=== PATIENT | female | born 1965 | race Caucasian/White ===

== ENCOUNTER 2016-09-15 10:18 | Emergency (ER) | payer OTHER ==
--- NOTE | 2016-09-15 10:31 | CPEKG ---
Heart Rate: 84 RR Interval: 714 P-R Interval: 164 QRSD Interval: 84 QT Interval: 352 QTC Interval: 417 P [place]: 68 QRS [place]: 64 T Wave [place]: -55 EKG Severity - BORDERLINE ECG - EKG Impression: SINUS RHYTHM EKG Impression: BORDERLINE T ABNORMALITIES, DIFFUSE LEADS Electronically Signed By: Kirstin Bae 15-Sep-2016 15:18:44
--- NOTE | 2016-09-15 10:54 | EDPHY ---
H & P Time Seen by Provider: 09/15/16 10:35 HPI/ROS: CHIEF COMPLAINT: Chest pain HISTORY OF PRESENT ILLNESS: Patient is a 50-year-old female who presents to the emergency department with chest pain starting at 7 this morning. Patient states she was making breakfast when she noticed substernal chest discomfort. This has slowly moved to the left side of her chest. It radiates to her neck. She denies shortness of breath. No cough or fever. Patient states she has mild left calf discomfort. She regularly does yoga but it stopped for period of time. She recently went back and was concerned that this might be secondary to yoga. She denies any travel. No hormone use. She does not smoke. Patient took a baby aspirin prior to arrival. REVIEW OF SYSTEMS: My complete review of systems is negative except as mentioned in the HPI. Past Medical/Surgical History: Negative Past surgical history: Social history: The patient does not smoke use alcohol. Smoking Status: Never smoked Physical Exam: Vitals noted GENERAL: Well-appearing, in no acute distress, alert. HEENT: Eyes normal to inspection, normal pharynx, no signs of dehydration. NECK: No thyromegaly, no lymphadenopathy, supple. RESPIRATORY: Clear to auscultation bilaterally, no rales, rhonchi or wheezing. CVS: Regular rate and rhythm, no rubs, murmurs, or gallops. ABDOMEN: Soft, nontender, nondistended, no organomegaly. BACK: Normal to inspection, no CVA tenderness. SKIN: Normal color, no rash, warm, dry. No pallor. EXTREMITIES: No pedal edema, no calf tenderness, no Homans sign or cords, no joint swelling. NEURO/PSYCH: Alert and oriented, normal mood and affect, normal motor sensory exam. Constitutional: Initial Vital Signs Temperature (C) 36.4 C 09/15/16 10:23 Heart Rate 84 09/15/16 10:23 Respiratory Rate 17 09/15/16 10:23 Blood Pressure 168/86 H 09/15/16 10:23 O2 Sat (%) 96 09/15/16 10:23 O2 Delivery Mode Room Air Allergies/Adverse Reactions: latex Allergy (Verified 09/15/16 10:22) Penicillins Allergy (Verified 09/15/16 10:22) Sulfa (Sulfonamide Antibiotics) Allergy (Verified 09/15/16 10:22) sulfamethoxazole [From Septra] Allergy (Verified 09/15/16 10:22) trimethoprim [From Septra] Allergy (Verified 09/15/16 10:22) Home Medications: Medication Instructions Recorded Miscellaneous Medical Supply [NO 1 ea [facility] [place] AD 02/12/13 HOME MEDS] Medical Decision Making - Diagnostics EKG Interpretation: EKG shows normal sinus rhythm, normal rate, normal axis, normal intervals. There are no ST or T-wave abnormalities. EKG is normal as interpreted by me. ED Course/Re-evaluation: In the emergency department I discussed possible etiologies with the patient. I answered all her questions. IV was placed. The patient had laboratory studies, chest x-ray and EKG ordered. She was given a GI cocktail and aspirin. Patient had normal left lower extremity. She feels this is a muscle strain. I did consider DVT. On repeat exam the patient had no chest pain or shortness of breath. Patient's D-dimer and troponin were negative. She was mildly anemic. I discussed all results with the patient and answered her questions. She will follow up with her primary care physician for mild anemia. She is given warnings prior to leaving. She will return with worsening symptoms. Differential Diagnosis: My differential includes but is not limited to ACS, acute [place], pericarditis, myocarditis, pleurisy, pulmonary embolus, bronchitis, pneumonia, GERD, peptic ulcer disease, perforation dissection, aneurysm - Data Points Laboratory Results: Laboratory Results 09/15/16 10:43 09/15/16 10:43 09/15/16 09/15/16 09/15/16 10:43 10:43 10:43 WBC RBC Hgb Hct MCV MCH MCHC RDW Plt Count MPV Neut % (Auto) Lymph % (Auto) [place] % (Auto) Eos % (Auto) Baso % (Auto) Nucleat RBC Rel Count Absolute Neuts (auto) Absolute Lymphs (auto) Absolute Monos (auto) Absolute Eos (auto) Absolute Basos (auto) Absolute Nucleated RBC Immature Gran % Immature Gran # D-Dimer 0.43 ug/mLFEU ug/mLFEU (0.00-0.50) Sodium 142 mEq/L mEq/L (134-144) Potassium 4.0 mEq/L mEq/L (3.5-5.2) Chloride 106 mEq/L mEq/L (97-110) Carbon Dioxide 24 mEq/l mEq/l (22-31) Anion Gap 12 mEq/L mEq/L (8-16) BUN 14 mg/dL mg/dL (7-23) Creatinine 0.9 mg/dL mg/dL (0.6-1.0) Estimated GFR > 60 Glucose 95 mg/dL mg/dL (70-100) Calcium 9.1 mg/dL mg/dL (8.5-10.4) Total Bilirubin 0.9 mg/dL mg/dL (0.1-1.4) Conjugated Bilirubin 0.3 mg/dL mg/dL (0.0-0.5) Unconjugated Bilirubin 0.6 mg/dL mg/dL (0.0-1.1) AST 21 IU/L IU/L (14-46) ALT 27 IU/L IU/L (9-52) Alkaline Phosphatase 77 IU/L IU/L (38-126) Troponin I < 0.012 ng/mL ng/mL (0-0.034) Total Protein 7.1 g/dL g/dL (6.3-8.2) Albumin 4.3 g/dL g/dL (3.5-5.0) Lipase 126.0 IU/L IU/L (23-300) Beta HCG, Qual NEGATIVE 09/15/16 10:43 WBC 7.92 10^3/uL 10^3/uL (3.80-9.50) RBC 4.84 10^6/uL 10^6/uL (4.18-5.33) Hgb 11.4 g/dL L g/dL (12.6-16.3) Hct 36.7 % L % (38.0-47.0) MCV 75.8 fL L fL (81.5-99.8) MCH 23.6 pg L pg (27.9-34.1) MCHC 31.1 g/dL L g/dL (32.4-36.7) RDW 15.9 % H % (11.5-15.2) Plt Count 268 10^3/uL 10^3/uL (150-400) MPV 11.6 fL fL (8.7-11.7) Neut % (Auto) 69.1 % % (39.3-74.2) Lymph % (Auto) 21.8 % % (15.0-45.0) [place] % (Auto) 7.2 % % (4.5-13.0) Eos % (Auto) 1.1 % % (0.6-7.6) Baso % (Auto) 0.5 % % (0.3-1.7) Nucleat RBC Rel Count 0.0 % % (0.0-0.2) Absolute Neuts (auto) 5.47 10^3/uL 10^3/uL (1.70-6.50) Absolute Lymphs (auto) 1.73 10^3/uL 10^3/uL (1.00-3.00) Absolute Monos (auto) 0.57 10^3/uL 10^3/uL (0.30-0.80) Absolute Eos (auto) 0.09 10^3/uL 10^3/uL (0.03-0.40) Absolute Basos (auto) 0.04 10^3/uL 10^3/uL (0.02-0.10) Absolute Nucleated RBC 0.00 10^3/uL 10^3/uL (0-0.01) Immature Gran % 0.3 % % (0.0-1.1) Immature Gran # 0.02 10^3/uL 10^3/uL (0.00-0.10) D-Dimer Sodium Potassium Chloride Carbon Dioxide Anion Gap BUN Creatinine Estimated GFR Glucose Calcium Total Bilirubin Conjugated Bilirubin Unconjugated Bilirubin AST ALT Alkaline Phosphatase Troponin I Total Protein Albumin Lipase Beta HCG, Qual Medications Given: Discontinued Medications Al Hydroxide/Mg Hydroxide (Maalox Susp) 30 ml PO ONCE ONE Stop: 09/15/16 11:09 Last Admin: 09/15/16 11:25 Dose: 30 ml Aspirin (Aspirin) 324 mg PO EDNOW ONE Stop: 09/15/16 11:09 Last Admin: 09/15/16 11:24 Dose: 324 mg Hyoscyamine Sulfate (Levsin, Hyomax-Sl) 0.25 mg PO ONCE ONE Stop: 09/15/16 11:09 Last Admin: 09/15/16 11:24 Dose: 0.25 mg Lidocaine (Lidocaine 2% Viscous) 15 ml PO ONCE ONE Stop: 09/15/16 11:09 Last Admin: 09/15/16 11:25 Dose: 15 ml Departure - Departure Disposition: Home, Routine, Self-Care Clinical Impression: Anemia Chest pain Qualifiers: Chest pain type: precordial pain Qualified Code(s): R07.2 - Precordial pain Condition: Good Instructions: Chest Pain (ED), Anemia (ED) Additional Instructions: Return with increasing chest pain, shortness of breath, leg pain or any other concerns. Referrals: Tg Keene MD [Primary Care Provider] - 2-3 days without fail
[2016-09-15] MEDS ORDERED: LIDOCAINE 2% VISCOUS 15 ML UDCUP PO ONE (11:08)
[2016-09-15] MEDS ORDERED: MAG HYDROX/AL HYDROX/SIMETH 30 ML UDCUP PO ONE (11:08)
[2016-09-15] MEDS ORDERED: ASPIRIN 81 MG CHEWABLE TAB PO ONE (11:08)
[2016-09-15] MEDS ORDERED: HYOSCYAMINE SULFATE 0.125 MG TAB PO ONE (11:08)
[2016-09-15 11:21] LABS: % IMMATURE GRANULYOCYTES 0.3 % (0.0-1.1); ABSOLUTE IMMATURE GRANULOCYTES 0.02 10^3/uL (0.00-0.10); ADD DIFF? NO; ADD MORPH? NO; ADD SCAN? NO; ATYPICAL LYMPHOCYTE FLAG 0 (0-99); FRAGMENT RBC FLAG 20 (0-99); HEMATOCRIT 36.7 % (38.0-47.0); HEMOGLOBIN 11.4 g/dL (12.6-16.3); LEFT SHIFT FLG 0 (0-99); LIPEMIA HEMOLYSIS FLAG 80 (0-99); MEAN CELL HEMOGLOBIN 23.6 pg (27.9-34.1); MEAN CELL HEMOGLOBIN CONCENTR. 31.1 g/dL (32.4-36.7); MEAN CELL VOLUME 75.8 fL (81.5-99.8); MEAN PLATELET VOLUME 11.6 fL (8.7-11.7); PLATELET CLUMPS FLAG 0 (0-99); PLATELET COUNT 268 10^3/uL (150-400); RED BLOOD CELL COUNT 4.84 10^6/uL (4.18-5.33); RED CELL DISTRIBUTION WIDTH 15.9 % (11.5-15.2)
[2016-09-15 11:30] LABS: ALANINE AMINOTRANSFERASE 27 IU/L (9-52); ALBUMIN 4.3 g/dL (3.5-5.0); ALKALINE PHOSPHATASE 77 IU/L (38-126); ANION GAP 12 mEq/L (8-16); ASPARTATE AMINOTRANSFERASE 21 IU/L (14-46); BILIRUBIN,TOTAL 0.9 mg/dL (0.1-1.4); BILIRUBIN-CONJUGATED 0.3 mg/dL (0.0-0.5); BILIRUBIN-UNCONJUGATED 0.6 mg/dL (0.0-1.1); CALCIUM 9.1 mg/dL (8.5-10.4); CARBON DIOXIDE 24 mEq/l (22-31); CHLORIDE 106 mEq/L (97-110); CREATININE 0.9 mg/dL (0.6-1.0); GLOMERULAR FILTRATION RATE > 60; GLUCOSE 95 mg/dL (70-100); SODIUM 142 mEq/L (134-144); TOTAL PROTEIN 7.1 g/dL (6.3-8.2)
[2016-09-15 11:40] LABS: TROPONIN I < 0.012 ng/mL (0-0.034)
[2016-09-15 12:20] VITALS: BP 121/75; PULSE 66; RESP 20; TEMP 98.1; O2SAT 95
== END 2016-09-15 12:30 | disposition home or self-care (01) ==
DX: R07.2 Precordial pain (principal); D64.9 Anemia, unspecified; Z91.040 Latex allergy status